=== PATIENT | female | born 1970 | race Two or more races ===

== ENCOUNTER 2020-12-17 01:18 | Inpatient (IN) | payer MEDICAID ==
[~2020-12-17] VITALS: Ht 154.9 cm; Wt 58.5 kg
[2020-12-17] MEDS ORDERED: ZOLP5TAB2 PO (01:57)
[2020-12-17] MEDS ORDERED: LORazepam 2 MG TABLET PO PRN (02:30)
[2020-12-17] MEDS ORDERED: QUEtiapine FUMARATE 100 MG TABLET PO PRN (02:30)
[2020-12-17 03:03] LABS: BASOPHILS % (AUTO) 0.3 % (0.0-2.0); HEMATOCRIT 25.2 % (36-46); HEMOGLOBIN 7.3 g/dL (12.0-16.0); LYMPHOCYTES # (AUTO) 1.4 K/uL (1.0-4.8); LYMPHOCYTES % (AUTO) 27.2 % (22.0-44.0); MEAN CORPUSCULAR HEMOGLOBIN 18.4 pg (26.0-34.0); MEAN CORPUSCULAR VOLUME 64 fL (80-100); MONOCYTES # (AUTO) 0.7 K/uL (0.1-1.0); NEUTROPHILS # (AUTO) 2.9 K/uL (1.8-7.7); NEUTROPHILS % (AUTO) 55.5 % (40.0-70.0); PLATELET COUNT (AUTO) 456 K/uL (150-450); RED BLOOD CELL COUNT(AUTO) 3.96 MIL/uL (4.00-5.20); RED CELL DISTRIBUTION WIDTH 18.4 % (11.5-14.5)
[2020-12-17 03:09] LABS: ANION GAP 13 mmol/L (8-16); CALCIUM, TOTAL 8.4 mg/dL (8.8-10.5); CARBON DIOXIDE 24 mmol/L (22-29); CHLORIDE 104 mmol/L (98-107); CREATININE 0.65 mg/dL (0.60-1.30); GLOMERULAR FILTR. RATE CALC > 60 mL/min (>60); GLUCOSE,RANDOM 82 mg/dL (70-110); POTASSIUM 3.2 mmol/L (3.5-5.1); SODIUM SERUM 141 mmol/L (136-145); UREA NITROGEN, BLOOD 10 mg/dL (7-18)
[2020-12-17 03:13] LABS: ALANINE AMINOTRANSFERASE 18 U/L (12-78); ALBUMIN 3.2 g/dL (3.4-5.0); ALKALINE PHOSPHATASE 74 U/L (46-116); ASPARTATE AMINOTRANSFERASE 22 U/L (15-37); BILIRUBIN,TOTAL 0.1 mg/dL (0.1-1.0); TOTAL PROTEIN, SERUM 7.3 g/dL (6.4-8.2)
[2020-12-17 03:14] LABS: ACETAMINOPHEN < 2 mcg/mL (10-30)
[2020-12-17] MEDS ORDERED: POTASSIUM CHLORIDE 20 MEQ ER TABLET PO ONE (04:00)
[2020-12-17 05:26] LABS: COVID AG,FIA SOURCE NASOPHARYNGEAL
[2020-12-17] MEDS ORDERED: MAGNESIUM HYDROXIDE SUSPENSION 30 ML UDCUP PO PRN (08:00)
[2020-12-17] MEDS ORDERED: ONDANSETRON HCL 4 MG TABLET PO PRN (08:00)
[2020-12-17] MEDS ORDERED: DOCUSATE SODIUM 100 MG CAPSULE PO PRN (08:00)
[2020-12-17] MEDS ORDERED: ALBUTEROL SULFATE HFA 90 MCG/PUFF 8 GM INHALER IH PRN (08:00)
[2020-12-17] MEDS ORDERED: GuaiFENesin/D-METHORPHAN [SUGAR-FREE] 200-20MG/10 ML SYRUP UDCUP PO PRN (08:00)
[2020-12-17] MEDS ORDERED: CloNIDine HCL 0.1 MG TABLET PO PRN (08:00)
[2020-12-17] MEDS ORDERED: NICOTINE 14 MG/24 HOUR PATCH TD PRN (08:00)
[2020-12-17] MEDS ORDERED: PETROLATUM,WHITE 28 GM JELLY TP PRN (08:00)
[2020-12-17] MEDS ORDERED: MAG HYDROX/AL HYDROX/SIMETH ES 30 ML SUSPENSION UDCUP PO PRN (08:00)
[2020-12-17] MEDS ORDERED: IBUPROFEN 400 MG TABLET PO PRN (08:00)
[2020-12-17] MEDS ORDERED: LOPERAMIDE HCL 2 MG CAPSULE PO PRN (08:00)
[2020-12-17] MEDS ORDERED: ACETAMINOPHEN 325 MG TABLET PO PRN (08:00)
[2020-12-17 08:58] VITALS: BP 92/54
[2020-12-17] MEDS ORDERED: CITALOPRAM HYDROBROMIDE 10 MG TABLET PO SCH (12:30)
[2020-12-17] MEDS: CITALOPRAM HYDROBROMIDE 20 MG TABLET PO SCH (12:58)
[2020-12-17 16:26] VITALS: BP 125/60
[2020-12-17] MEDS: ZOLPIDEM TARTRATE 10 MG TABLET PO PRN (20:22)
[2020-12-18 08:00] VITALS: BP 98/62
[2020-12-18] MEDS: CITALOPRAM HYDROBROMIDE 20 MG TABLET PO SCH (08:01)
[2020-12-18 08:25] LABS: POTASSIUM 4.4 mmol/L (3.5-5.1)
[2020-12-18 17:00] VITALS: BP 113/73
[2020-12-18] MEDS: ZOLPIDEM TARTRATE 10 MG TABLET PO PRN (20:35)
[2020-12-19] MEDS: CITALOPRAM HYDROBROMIDE 20 MG TABLET PO SCH (08:12)
[2020-12-19 08:50] VITALS: BP 92/58
[2020-12-19 16:09] VITALS: BP 104/69
[2020-12-19] MEDS: ZOLPIDEM TARTRATE 10 MG TABLET PO PRN (20:57)
[2020-12-20] MEDS: CITALOPRAM HYDROBROMIDE 20 MG TABLET PO SCH (08:05)
[2020-12-20 08:55] VITALS: BP 97/50
[2020-12-20 16:00] VITALS: BP 101/65
[2020-12-20] MEDS: ZOLPIDEM TARTRATE 10 MG TABLET PO PRN (20:25)
[2020-12-21 08:44] VITALS: BP 92/56
[2020-12-21] MEDS: CITALOPRAM HYDROBROMIDE 20 MG TABLET PO SCH (08:48)
[2020-12-21 16:00] VITALS: BP 79/47
[2020-12-21 16:05] VITALS: BP 99/56
[2020-12-21] MEDS: ZOLPIDEM TARTRATE 10 MG TABLET PO PRN (20:20)
[2020-12-22 08:00] VITALS: BP 87/53
[2020-12-22] MEDS: CITALOPRAM HYDROBROMIDE 20 MG TABLET PO SCH (08:50)
[2020-12-22 09:00] VITALS: BP 94/52
[2020-12-22 16:00] VITALS: BP 112/72
[2020-12-22] MEDS: ZOLPIDEM TARTRATE 10 MG TABLET PO PRN (20:14)
[2020-12-23 05:26] VITALS: BP 97/59
[2020-12-23 08:45] VITALS: BP 96/53
[2020-12-23] MEDS: CITALOPRAM HYDROBROMIDE 20 MG TABLET PO SCH (09:28)
[2020-12-23 16:31] VITALS: BP 113/73
[2020-12-23 16:57] LABS: COVID AG,FIA SOURCE NASAL SWAB
[2020-12-23] MEDS: ZOLPIDEM TARTRATE 10 MG TABLET PO PRN (20:08)
[2020-12-24 08:36] VITALS: BP 90/60
[2020-12-24] MEDS: CITALOPRAM HYDROBROMIDE 20 MG TABLET PO SCH (08:41)
[2020-12-24 16:00] VITALS: BP 102/60
[2020-12-24] MEDS: ZOLPIDEM TARTRATE 10 MG TABLET PO PRN (20:25)
[2020-12-25 08:00] VITALS: BP 100/58
[2020-12-25 09:00] VITALS: BP 88/51
[2020-12-25] MEDS: CITALOPRAM HYDROBROMIDE 20 MG TABLET PO SCH (09:50)
[2020-12-25 16:17] VITALS: BP 93/62
[2020-12-25] MEDS: ZOLPIDEM TARTRATE 10 MG TABLET PO PRN (20:17)
[2020-12-26 03:20] VITALS: BP 101/64
[2020-12-26] MEDS: CITALOPRAM HYDROBROMIDE 20 MG TABLET PO SCH (08:18)
[2020-12-26 09:52] VITALS: BP 91/51
[2020-12-26] MEDS ORDERED: CITA-144 PO (10:42)
== END 2020-12-26 11:40 | disposition home or self-care (01) | DRG 750 ==
LOC: EMS 01:20 → 3EI 03:21
PROVIDERS: ADMIT Psychiatry & Neurology Child & Adolescent Psychiatry; ATTEND Psychiatry & Neurology Child & Adolescent Psychiatry
DX: F20.9 Schizophrenia, unspecified (principal); R45.851 Suicidal ideations; Z59.0 Homelessness; D64.9 Anemia, unspecified; E87.6 Hypokalemia; F41.9 Anxiety disorder, unspecified; Z20.822 Contact with and (suspected) exposure to COVID-19
CPT/HCPCS: 80053; 80061; 84132; 85025; 99285; G0480; G0481

== ENCOUNTER 2020-12-30 15:31 | Emergency (ER) | payer MEDICAID ==
[~2020-12-30] VITALS: Ht 154.9 cm; Wt 59.1 kg
[~2020-12-30 15:31] MED LIST: CITA-144 PO
[2020-12-30 17:31] LABS: AMPHET/METH SCREEN,URINE NEGATIVE (NEGATIVE); BARBITURATE SCREEN, URINE NEGATIVE (NEGATIVE); BENZODIAZEPINES SCREEN,URINE NEGATIVE (NEGATIVE); CANNABINOID SCREEN,URINE NEGATIVE (NEGATIVE); COCAINE SCREEN,URINE NEGATIVE (NEGATIVE); METHADONE SCREEN, URINE NEGATIVE (NEGATIVE); OPIATE SCREEN,URINE NEGATIVE (NEGATIVE); PHENCYCLIDINE SCREEN,URINE NEGATIVE (NEGATIVE)
[2020-12-30 18:00] LABS: COVID AG,FIA SOURCE NASOPHARYNGEAL
[2020-12-30 18:58] LABS: BASOPHILS % (AUTO) 0.4 % (0.0-2.0); EOSINOPHILS % (AUTO) 2.8 % (1.0-6.0); HEMATOCRIT 23.7 % (36-46); HEMOGLOBIN 7.1 g/dL (12.0-16.0); LYMPHOCYTES # (AUTO) 1.4 K/uL (1.0-4.8); LYMPHOCYTES % (AUTO) 27.8 % (22.0-44.0); MEAN CORPUSCULAR HEMOGLOBIN 18.8 pg (26.0-34.0); MEAN CORPUSCULAR HGB CONC 29.8 G/dL (31.0-37.0); MEAN CORPUSCULAR VOLUME 63 fL (80-100); MONOCYTES # (AUTO) 0.4 K/uL (0.1-1.0); MONOCYTES % (AUTO) 8.4 % (2.0-9.0); NEUTROPHILS % (AUTO) 60.6 % (40.0-70.0); PLATELET COUNT (AUTO) 365 K/uL (150-450); RED BLOOD CELL COUNT(AUTO) 3.76 MIL/uL (4.00-5.20); RED CELL DISTRIBUTION WIDTH 18.2 % (11.5-14.5)
[2020-12-30 19:13] LABS: ANION GAP 7 mmol/L (8-16); CALCIUM, TOTAL 8.4 mg/dL (8.8-10.5); CARBON DIOXIDE 26 mmol/L (22-29); CHLORIDE 105 mmol/L (98-107); CREATININE 0.86 mg/dL (0.60-1.30); GLOMERULAR FILTR. RATE CALC > 60 mL/min (>60); GLUCOSE,RANDOM 135 mg/dL (70-110); POTASSIUM 3.4 mmol/L (3.5-5.1); SODIUM SERUM 138 mmol/L (136-145); UREA NITROGEN, BLOOD 10 mg/dL (7-18)
[2020-12-30 19:18] LABS: ALANINE AMINOTRANSFERASE 17 U/L (12-78); ALBUMIN 3.4 g/dL (3.4-5.0); ALKALINE PHOSPHATASE 68 U/L (46-116); ASPARTATE AMINOTRANSFERASE 20 U/L (15-37); BILIRUBIN,TOTAL 0.3 mg/dL (0.1-1.0)
[2020-12-30] MEDS ORDERED: POTASSIUM CHLORIDE 10% 40 MEQ/30 ML LIQUID UDCUP PO ONE (19:45)
[2020-12-30 20:11] LABS: % IRON SATURATION 1.7 % (22-44)
[2020-12-30] MEDS ORDERED: LORazepam 1 MG TABLET PO ONE (20:30)
[2020-12-30] MEDS ORDERED: FERROUS GLUCONATE 324 MG TABLET PO ONE (20:30)
[2020-12-30 21:37] LABS: APPEARANCE,URINE CLEAR (CLEAR); BILIRUBIN,URINE NEGATIVE (NEGATIVE); GLUCOSE, URINE (UA) NEGATIVE (NEGATIVE); KETONES,URINE TRACE mg/dL (NEGATIVE); LEUKOCYTE ESTERASE ,URINE NEGATIVE (NEGATIVE); NITRATE,URINE NEGATIVE (NEGATIVE); OCCULT BLOOD,URINE NEGATIVE (NEGATIVE); PROTEIN,URINE NEGATIVE (NEGATIVE); UROBILINOGEN,URINE 0.2 mg/dL (<=1.0)
[2020-12-30 21:40] VITALS: BP 122/65
== END 2020-12-30 22:00 | disposition home or self-care (01) ==
LOC: EMS 15:31
DX: F32.9 Major depressive disorder, single episode, unspecified (principal); F41.9 Anxiety disorder, unspecified; E87.6 Hypokalemia; D50.9 Iron deficiency anemia, unspecified; Z88.8 Allergy status to other drugs, medicaments and biological substances; Z79.899 Other long term (current) drug therapy; Z20.822 Contact with and (suspected) exposure to COVID-19
CPT/HCPCS: 36415; 80053; 80307; 81003; 83540; 83550; 85025; 87426; 99284; G0480

== ENCOUNTER 2024-09-25 23:40 | Emergency (ER) | payer MEDICAID, OTHER ==
[~2024-09-25] VITALS: Ht 157.5 cm; Wt 59.1 kg
[2024-09-25 23:54] VITALS: TEMP 98.1
[2024-09-26 01:58] LABS: BASOPHILS % (AUTO) 0.3 % (0.0-2.0); EOSINOPHILS % (AUTO) 0.9 % (1.0-6.0); HEMATOCRIT 32.1 % (36-46); HEMOGLOBIN 10.3 g/dL (12.0-16.0); LYMPHOCYTES # (AUTO) 1.4 K/uL (1.0-4.8); LYMPHOCYTES % (AUTO) 21.2 % (22.0-44.0); MEAN CORPUSCULAR HEMOGLOBIN 25.4 pg (26.0-34.0); MEAN CORPUSCULAR HGB CONC 32.1 G/dL (31.0-37.0); MEAN CORPUSCULAR VOLUME 79 fL (80-100); MONOCYTES # (AUTO) 0.5 K/uL (0.1-1.0); MONOCYTES % (AUTO) 7.4 % (2.0-9.0); NEUTROPHILS # (AUTO) 4.7 K/uL (1.8-7.7); NEUTROPHILS % (AUTO) 70.2 % (40.0-70.0); PLATELET COUNT (AUTO) 343 K/uL (150-450); RED BLOOD CELL COUNT(AUTO) 4.05 MIL/uL (4.00-5.20); RED CELL DISTRIBUTION WIDTH 19.2 % (11.5-14.5); WHITE BLOOD COUNT (AUTO) 6.8 K/uL (4.5-11.0)
[2024-09-26 02:03] LABS: ANION GAP 9 mmol/L (8-16); CALCIUM, TOTAL 9.4 mg/dL (8.8-10.5); CARBON DIOXIDE 28 mmol/L (22-29); CHLORIDE 103 mmol/L (98-107); CREATININE 0.59 mg/dL (0.60-1.30); GLOMERULAR FILTR. RATE CALC > 60 mL/min (>60); GLUCOSE,RANDOM 101 mg/dL (70-110); POTASSIUM 4.1 mmol/L (3.5-5.1); SODIUM SERUM 140 mmol/L (136-145); UREA NITROGEN, BLOOD 9 mg/dL (7-18)
[2024-09-26 02:15] LABS: ALCOHOL, BLOOD (SERUM) < 3 mg/dL (0-10)
[2024-09-26 02:28] VITALS: BP 110/72; PULSE 79; RESP 16; O2SAT 99
== END 2024-09-26 06:08 | disposition home or self-care (01) ==
LOC: EMS 23:42
DX: S00.83XA Contusion of other part of head, initial encounter (principal); F32.A Depression, unspecified; F20.9 Schizophrenia, unspecified; Z88.8 Allergy status to other drugs, medicaments and biological substances; Z79.899 Other long term (current) drug therapy; W22.8XXA Striking against or struck by other objects, initial encounter; Y93.89 Activity, other specified; Y92.89 Other specified places as the place of occurrence of the external cause; Y99.8 Other external cause status
CPT/HCPCS: 99284; 80048; 85025; 36415; 70450; G0480